=== PATIENT | male | born 1975 | race Two or more races ===

== ENCOUNTER 2024-08-12 23:27 | Emergency (ER) | payer OTHER ==
[~2024-08-12] VITALS: Ht 162.6 cm; Wt 63.5 kg
[2024-08-13] MEDS ORDERED: KETOROLAC TROMETHAMINE 60 MG VIAL IM STA (02:38)
[2024-08-13] MEDS ORDERED: ORPHENADRINE CITRATE 30 MG/ML AMPUL IM STA (02:39)
== END 2024-08-13 04:03 | disposition home or self-care (01) ==
LOC: ER 23:29
DX: S19.9XXA Unspecified injury of neck, initial encounter (principal); V49.88XA Car occupant (driver) (passenger) injured in other specified transport accidents, initial encounter; Y93.89 Activity, other specified; Y92.89 Other specified places as the place of occurrence of the external cause; Y99.8 Other external cause status; M43.6 Torticollis